=== PATIENT | female | born 1970 | race Caucasian/White ===

== ENCOUNTER 2020-07-08 12:58 | Emergency (ER) | payer SELFPAY ==
[2020-07-08 13:05] VITALS: BP 108/74; PULSE 78; RESP 16; TEMP 36.6; O2SAT 100; BMI 23.6
[2020-07-08 14:11] VITALS: RESP 15
--- NOTE | 2020-07-08 14:19 | ED_ITS ---
HPI - General Adult General: Chief complaint: General Medical Stated complaint: PAIN WITH SHINGLES History of Present Illness: HPI narrative: Patient is a 50-year-old female comes to the ED with pain on skin of back. Patient says for the past couple weeks now she is having patches of burning pain on the skin on right side of torso. Patient has been to the doctor's office twice and they have put her on amitriptyline and says that has not helped. Patient has a painful spot that goes from the lateral edge of her right breast all the way around to her back. She also reports a patch of pain on the right side of cervical spine just below her right trapezius muscle. She does not see any visible rash. Associated symptoms: Reports rash; Deny chest pain, dyspnea, headache(s), nausea, palpitations or vomiting Review of Systems Const: Denies: fever(s), chills or fatigue Eyes: Denies: change in vision or eye discomfort ENMT: Denies: throat pain, odynophagia, nasal discharge or nasal congestion Card: Denies: chest pain, palpitations, edema, swelling of feet/ankles, dyspnea on exertion or orthopnea Resp: Denies: dyspnea, productive cough or non-productive cough GI: Denies: abdominal pain, nausea, vomiting, diarrhea, constipation or hematochezia : Denies: flank pain, dysuria or hematuria Musc: Denies: neck pain, back pain or extremity swelling Skin/Breast: Reports: rash; Denies: new lesions Neuro: Denies: headache(s), numbness in extremities or weakness in extremities PFS ED PFSH: Social History Smoking and tobacco status: current every day smoker cigarettes [ Other cigarette details: 0.5 pack @ 3 days ] and pipe Alcohol intake: never Physical Exam Const: COMMON NORMALS: no acute distress, patient oriented x3 and alert GENERAL APPEARANCE: cooperative and comfortable HENMT: COMMON NORMALS: normocephalic HEAD & SCALP: normocephalic MOUTH: Normal oral and palatal mucosa present THROAT: posterior oropharynx normal and uvula midline Neck/C-Spine: COMMON NORMALS: supple GENERAL: Yes normal visual inspection Resp: COMMON NORMALS: normal respiratory effort, No retractions, No use of accessory muscles and clear to auscultation bilaterally AUSCULTATION: clear to auscultation bilaterally Cardio: COMMON NORMALS: regular rate, regular rhythm, S1 normal heart sound present, S2 normal heart sound present, No gallops present (Cardio), No clicks present (Cardio), No murmurs present (Cardio) and Peripheral pulses 2+ throughout RATE: regular rate RHYTHM: regular rhythm HEART SOUNDS: S1 normal heart sound present and S2 normal heart sound present PERIPHERAL PULSES: Peripheral pulses 2+ throughout GI: COMMON NORMALS: Normal to inspection, nondistended, normoactive bowel sounds present, Soft to palpation, non-tender and no masses PALPATION: Yes Soft to palpation : COMMON NORMALS: Yes no CVA tenderness BLADDER/KIDNEY EXAM: Yes no CVA tenderness Back/Pelvis: COMMON NORMALS: no CVA tenderness Extremity: COMMON NORMALS: normal to inspection Neuro: COMMON NORMALS: patient oriented x3 and moves all extremities SENSORIUM/ORIENTATION: Yes alert Skin: NARRATIVE SKIN EXAM: Patient appears to have slight erythemic patch-like rash on right flank and right side upper back. Rash is not raised and is not vesicular.. Rash is tender to palpation. Course Vital Signs: Vital signs: Vital Signs Temperature 97.8 F 07/08/20 13:05 Pulse Rate 78 07/08/20 13:05 Respiratory Rate 15 07/08/20 14:54 Blood Pressure 108/74 07/08/20 13:05 Pulse Oximetry 100 07/08/20 13:05 MDM - General Adult MDM Narrative: Medical decision making narrative: Patient is a 50-year-old female appears to be having shingles-like symptoms. She has an erythemic rash on right flank and right upper back that is painful to the touch. Findings suggestive of shingles. She was discharged home with a prescription for valacyclovir. She is told to follow-up with her PCP in 7 to 10 days. Return ED precautions given. Patient understood agree with plan. Discharge Plan Discharge Patient Disposition: Home Clinical Impression: Shingles rash Qualifiers: Herpes zoster complications: without complications Qualified Code(s): B02.9 - Zoster without complications Condition: Stable Prescriptions: New valacyclovir 1 gram tablet 1,000 mg PO Q8H 7 Days Qty: 21 RF: 0 Discharge Orders: Discharge ED (Routine); Ordered 07/08/20 Ordered By: Nicolas Stone Referrals: Perez,Rome K, HEAT TREATER HELPER [Primary Care Provider] - Discharge Diet: Regular Discharge Activity: Increase activity as tolerated Patient Instructions: Herpes Zoster (ED) Activity Restrictions/Additional Instructions: Follow-up with medical provider as directed. Take medications as prescribed. Return to the ER or your medical provider if condition worsens. Please read and understand discharge instructions. Thank you for choosing [facility] for your healthcare needs today. Please realize this is an emergency room and that we are providing you with a medical screening exam and this may not be complete and all inclusive of all the testing and or work up that you may need to determine your ailment or severity of your illness. It is very important that you follow up as instructed or that you return to the Emergency Department should you have concerns or if your condition changes or worsens in any way. Coding Level of Care Code ED Surgical Product Sales Consultant for Delmer Arceo Exam Comprehensive
[2020-07-08] MEDS: HYDROcodone-acetaminophen 7.5-325 mg Tablet 1 TAB PO (14:31)
[2020-07-08 14:54] VITALS: RESP 15
== END 2020-07-08 14:55 | disposition home or self-care (01) ==
PROVIDERS: Emergency Provider Physician Assistant; PCP Nurse Practitioner
DX: B02.9 Zoster without complications (principal); F17.210 Nicotine dependence, cigarettes, uncomplicated
CPT/HCPCS: 99282

== ENCOUNTER 2020-07-10 23:10 | Emergency (ER) | payer SELFPAY ==
[2020-07-10 23:18] VITALS: BP 119/67; PULSE 74; RESP 15; TEMP 36.9; O2SAT 100; BMI 23.6
--- NOTE | 2020-07-10 23:33 | ED_ITS ---
HPI - General Adult General: Chief complaint: General Medical Stated complaint: shingles Time Seen by Provider: 07/10/20 23:18 History of Present Illness: HPI narrative: Patient was diagnosed with a herpes zoster's neuropathy last week. Patient reports numbness in her right arm and mid back pain. Patient appears well. Patient appears in mild to moderate pain. Patient does have a history of neck pain, and restless legs. Patient denies any routine meds medication use. Review of Systems General: Reports: 10 or more systems reviewed and unremarkable except in HPI and below PFSH ED PFSH: Social History Smoking and tobacco status: current every day smoker cigarettes [ Other cigarette details: 0.5 pack @ 3 days ] and pipe Alcohol intake: never Physical Exam Const: COMMON NORMALS: no acute distress and patient oriented x3 GENERAL APPEARANCE: cooperative HENMT: COMMON NORMALS: normocephalic, TM's normal bilaterally and Normal external nose present HEAD & SCALP: normal to inspection and normocephalic NOSE: Normal external nose present TYMPANIC MEMBRANE: TM's normal bilaterally MOUTH: Normal oral and palatal mucosa present THROAT: posterior oropharynx normal Eye: GENERAL EYE: appearance normal, both eyes and all related structures Neck/C-Spine: COMMON NORMALS: full ROM CERVICAL SPINE: Yes Paracervical muscle tenderness Lymph: LYMPHATIC: no lymphadenopathy noted Chest: COMMONS NORMALS: normal inspection of the chest Resp: COMMON NORMALS: normal respiratory effort EFFORT & INSPECTION: Yes able to speak in complete sentences Cardio: COMMON NORMALS: regular rate and regular rhythm RATE: regular rate RHYTHM: regular rhythm GI: COMMON NORMALS: non-tender : COMMON NORMALS: Yes no CVA tenderness BLADDER/KIDNEY EXAM: Yes no CVA tenderness Back/Pelvis: COMMON NORMALS: no CVA tenderness and thoracic and lumbar spine normal to inspection Extremity: COMMON NORMALS: normal to inspection Neuro: COMMON NORMALS: patient oriented x3 and moves all extremities Psych: COMMON NORMALS: mental status grossly normal and cooperative Skin: COMMON NORMALS: no rashes or lesions noted GENERAL SKIN EXAM: no rashes or lesions noted Course Vital Signs: Vital signs: Vital Signs Temperature 98.4 F 07/10/20 23:18 Pulse Rate 73 07/11/20 01:16 Respiratory Rate 16 07/11/20 01:16 Blood Pressure 97/63 07/11/20 01:16 Pulse Oximetry 98 07/11/20 01:16 MDM - General Adult MDM Narrative: Medical decision making narrative: Patient comes in for concerns of herpes zoster, shingles, and continued pain and discomfort due to the shingles. Patient has been having some mid back pain and some numbness in her left arm. On exam we note no shingles rash. Respirations are even lungs are clear to auscultation. Abdomen soft nontender. Vital signs are normal. Differential diagnosis includes but not limited to postherpetic neuropathy, cervical radiculopathy, depression. CT scan of the cervical neck was performed and noted some degenerative abnormalities but no specific spinal stenosis or fractures. Laboratory values were normal without any signs of significant anemia or liver disease. CRP was negative. Believe patient probably has some cervical radiculopathy which is causing some numbness going down her right arm. I will start patient on some gabapentin and give her some tramadol for her complaints of pain. Patient was given 1 hydrocodone in the emergency room with good results for pain control. Patient reported understanding agreed to plan and need for follow-up for further evaluation of cervical radiculopathy. Lab Data: Labs: Lab Results 07/11/20 07/11/20 Range/Units 00:01 00:01 WBC 6.0 (4.0-10.0) 10^3/ uL RBC 3.80 L (4.1-5.3) 10^6/u L Hgb 12.3 (11.5-15.3) g/dL Hct 37.8 (37.0-47.0) % MCV 99.5 H (81-99) fL MCH 32.4 (28.0-34.0) pg MCHC 32.5 (30.0-36.0) g/dL RDW 12.7 (12.1-15.1) % Plt Count 239 (130-400) 10^3/c mm MPV 10.1 (7.4-10.4) fL Neut % (Auto) 45.7 % Lymph % (Auto) 44.2 % [place] % (Auto) 6.1 % Eos % (Auto) 2.9 % Baso % (Auto) 0.8 % Neut # (Auto) 2.72 (1.8-7.7) 10^3/u L Lymph # (Auto) 2.6 (0.8-4.8) 10^3/u L [place] # (Auto) 0.4 (0.2-0.9) 10^3/u L Eos # (Auto) 0.2 (0.0-0.8) 10^3/u L Baso # (Auto) 0.1 (0.0-0.1) 10^3/u L Nucleated RBC % (a uto) 0 % Nucleated RBCs # 0.0 /100WBC Sodium 141 (136-145) mmol/L Potassium 4.1 (3.5-5.1) mmol/L Chloride 105 (98-107) mmol/L Carbon Dioxide 30 H (22-29) mmol/L Anion Gap 10.1 (5-19) BUN 14 (6-20) mg/dL Creatinine 0.6 (0.5-0.9) mg/dL GFR Calculation 105.8 (90-130) mL/min Glucose 108 (65-115) mg/dL Calculated Osmolal ity 293 (285-295) mOsm/k g Calcium 8.6 (8.5-10.5) mg/dL Total Bilirubin 0.3 (0.15-1.2) mg/dL AST 14 (0-32) U/L ALT 17 (0-33) U/L Alkaline Phosphata se 112 H (35-105) IU/L C-Reactive Protein 0.9 (0.0-4.9) mg/L Total Protein 6.0 L (6.6-8.7) g/dL Albumin 3.7 (3.5-5.2) g/dL Globulin 2.3 (1.3-4.6) g/dL Discharge Plan Discharge Patient Disposition: Home Clinical Impression: Cervical radicular pain Condition: Stable Prescriptions: New gabapentin 100 mg capsule 100 mg PO TID Qty: 45 RF: 0 tramadol 50 mg tablet 50 mg PO TID PRN (Reason: pain (scale score 7-10)) Qty: 15 RF: 0 No Action valacyclovir 1 gram tablet 1,000 mg PO Q8H 7 Days Qty: 21 RF: 0 Discharge Orders: Discharge ED (Routine); Ordered 07/11/20 Ordered By: Donn Yeh Referrals: oRme Perez FNP [Primary Care Provider] - Discharge Diet: Usual diet Discharge Activity: Increase activity as tolerated Patient Instructions: Cervical Radiculopathy (ED), Opioid Safety Activity Restrictions/Additional Instructions: Activity as tolerated. Use medications as directed. Drink plenty of water with medication. Follow-up with primary care for further instructions. Return to the ER for new concerns. Coding Level of Care Code ED Data Modeling Architect for Delmer Arceo
--- NOTE | 2020-07-10 23:42 | CTR_ITS ---
PROCEDURE INFORMATION: Exam: CT Cervical Spine Without Contrast Exam date and time: 07/10/2020 11:43 PM Age: 50 years old Clinical indication: Patient HX: C/O neck pain and stiffness. Recently diagnosed with shingles. ; Additional info: Cervical radiculopathy TECHNIQUE: Imaging protocol: Computed tomography images of the cervical spine without contrast. Radiation optimization: All CT scans at this facility use at least one of these dose optimization techniques: automated exposure control; mA and/or kV adjustment per patient size (includes targeted exams where dose is matched to clinical indication); or iterative reconstruction. COMPARISON: No relevant prior studies available. RADIATION DOSE METRICS: Total DLP (mGy-cm): 365.47 FINDINGS: Bones/joints: There is mild broad-based upper cervical kyphosis. There is no spondylolisthesis. There is mild multilevel facet spondylosis. There is no acute fracture. Discs/Spinal canal/Neural foramina: There is moderate degenerative disc disease in the cervical spine. There is no spinal canal stenosis. Lungs: Lung apices are clear. Soft tissues: Soft tissues in the neck and thoracic inlet are unremarkable. Other findings: The visible portion of the brain is normal. CT/CT cervical spin wo con* [id number] IMPRESSION: No acute fracture. Radiation Dose CTDIVOL = (mGy): DLP = 365.47 (mGy-cm)
[2020-07-11 00:06] LABS: Basophils # 0.1 10^3/uL (0.0-0.1); Basophils % 0.8 %; Eosinophils # 0.2 10^3/uL (0.0-0.8); Eosinophils % 2.9 %; Hematocrit 37.8 % (37.0-47.0); Hemoglobin 12.3 g/dL (11.5-15.3); Lymphocytes # 2.6 10^3/uL (0.8-4.8); Lymphocytes % 44.2 %; Mean Corpuscular HGB Conc 32.5 g/dL (30.0-36.0); Mean Corpuscular Hemoglobin 32.4 pg (28.0-34.0); Mean Corpuscular Volume 99.5 fL (81-99); Mean Platelet Volume 10.1 fL (7.4-10.4); Monocytes # 0.4 10^3/uL (0.2-0.9); Monocytes % 6.1 %; Neutrophils # 2.72 10^3/uL (1.8-7.7); Neutrophils % 45.7 %; Nucleated Red Blood Cells % 0 %; Platelet Count 239 10^3/cmm (130-400); Red Cell Distribution Width 12.7 % (12.1-15.1)
[2020-07-11] MEDS: HYDROcodone-acetaminophen 7.5-325 mg Tablet 1 TAB PO (00:13)
[2020-07-11 00:25] LABS: Alanine Aminotransferase 17 U/L (0-33); Albumin Level 3.7 g/dL (3.5-5.2); Alkaline Phosphatase 112 IU/L (35-105); Anion Gap 10.1 (5-19); Aspartate Amino Transferase 14 U/L (0-32); Blood Urea Nitrogen 14 mg/dL (6-20); C Reactive Protein 0.9 mg/L (0.0-4.9); Calcium 8.6 mg/dL (8.5-10.5); Carbon Dioxide 30 mmol/L (22-29); Chloride 105 mmol/L (98-107); Globulin 2.3 g/dL (1.3-4.6); Glomerular Filtration Rate 105.8 mL/min (90-130); Glucose 108 mg/dL (65-115); Osmolality Calculated 293 mOsm/kg (285-295); Potassium 4.1 mmol/L (3.5-5.1); Sodium 141 mmol/L (136-145); Total Bilirubin 0.3 mg/dL (0.15-1.2)
[2020-07-11 01:16] VITALS: BP 97/63; PULSE 73; RESP 16; O2SAT 98
[2020-07-11 01:33] VITALS: BP 102/72; PULSE 67; RESP 16; TEMP 36.7; O2SAT 100
== END 2020-07-11 01:35 | disposition home or self-care (01) ==
PROVIDERS: Emergency Provider Nurse Practitioner Family; PCP Nurse Practitioner
DX: M54.12 Radiculopathy, cervical region (principal); F17.210 Nicotine dependence, cigarettes, uncomplicated
CPT/HCPCS: 72125; 80053; 80307; 85025; 86140; 99283

== ENCOUNTER → 2020-07-11 08:39 | Outpatient (BNVA) | payer SELFPAY | PROVIDERS: PCP Nurse Practitioner; Visit Provider Nurse Practitioner Family | DX: R20.8 Other disturbances of skin sensation (principal) | CPT/HCPCS: 86787 ==

== ENCOUNTER 2021-07-24 07:40 | Emergency (ER) | payer OTHER, SELFPAY ==
[2021-07-24 07:48] VITALS: BP 116/67; PULSE 61; RESP 18; O2SAT 97; BMI 22.8
--- NOTE | 2021-07-24 07:56 | W.ED.FALL ---
HPI - Fall General: Chief Complaint: Fall Stated Complaint: fell at [facility] entrance Time Seen by Provider: 07/24/21 07:44 History of Present Illness: Patient is a 51-year-old female comes to the ED after a fall. Fall occurred this morning at [facility] medical office building. Patient was going to sit down on bench and missed the bench. Her buttock and lower back hit the floor and patient describes hearing a crack when she hit the ground. She now has 10 out of 10 pain in her lower back. Denies any pain radiating into her legs. Any movement causes worsening pain. Denies any head trauma or loss of consciousness. Denies any numbness tingling to pelvic region, bladder or bowel incontinence or any weakness to lower extremities. Patient has MS and sees Dr. Pastor. She has currently been set up with getting outpatient steroid IV infusions for 5 straight days. Patient has had 2 infusions already and today she was back to get her third infusion but skipped appointment due to fall. Associated symptoms-after fall: Denies abdominal pain, chest pain, headache(s), hematuria or neck pain Review of Systems Const: Denies: fever(s), chills or fatigue Eyes: Denies: change in vision or eye discomfort ENMT: Denies: throat pain, odynophagia, nasal discharge or nasal congestion Card: Denies: chest pain, palpitations, edema, swelling of feet/ankles, dyspnea on exertion or orthopnea Resp: Denies: dyspnea, productive cough or non-productive cough GI: Denies: abdominal pain, nausea, vomiting, diarrhea, constipation or hematochezia : Denies: flank pain, dysuria or hematuria Musc: Reports: back pain (Lumbar back pain); Denies: neck pain or extremity swelling Skin/Breast: Denies: rash or new lesions Neuro: Denies: headache(s), numbness in extremities or weakness in extremities PFS ED PFSH: Medical History Anxiety Multiple sclerosis Surgical History History of History of tubal ligation No pertinent past surgical history Family History Other CAD (coronary artery disease) Social History Smoking and tobacco status: current every day smoker cigarettes [ Other cigarette details: 0.5 pack @ 3 days] and pipe Alcohol intake: never Physical Exam Const: COMMON NORMALS: patient oriented x3 and alert GENERAL APPEARANCE: cooperative HENMT: COMMON NORMALS: normocephalic HEAD & SCALP: normocephalic MOUTH: Normal oral and palatal mucosa present THROAT: posterior oropharynx normal and uvula midline Neck/C-Spine: COMMON NORMALS: supple GENERAL: Yes normal visual inspection Resp: COMMON NORMALS: normal respiratory effort, No retractions, No use of accessory muscles and clear to auscultation bilaterally AUSCULTATION: clear to auscultation bilaterally Cardio: COMMON NORMALS: regular rate, regular rhythm, S1 normal heart sound present, S2 normal heart sound present, No gallops present (Cardio), No clicks present (Cardio), No murmurs present (Cardio) and Peripheral pulses 2+ throughout RATE: regular rate RHYTHM: regular rhythm HEART SOUNDS: S1 normal heart sound present and S2 normal heart sound present PERIPHERAL PULSES: Peripheral pulses 2+ throughout GI: COMMON NORMALS: Normal to inspection, nondistended, normoactive bowel sounds present, Soft to palpation, non-tender and no masses PALPATION: Yes Soft to palpation : COMMON NORMALS: Yes no CVA tenderness BLADDER/KIDNEY EXAM: Yes no CVA tenderness Back/Pelvis: COMMON NORMALS: no CVA tenderness LUMBAR SPINE/LOWER BACK: Yes pain with ROM, Yes lumbar spinal tenderness Lumbar spinal tenderness location: L3, L4 and L5 and Yes paraspinal muscle tenderness Lumbar paraspinal muscle tenderness: bilateral Bilateral lumbar paraspinal muscle tenderness: L3, L4 and L5 Extremity: COMMON NORMALS: normal to inspection and no pedal edema Neuro: COMMON NORMALS: patient oriented x3 and moves all extremities SENSORIUM/ORIENTATION: Yes alert Skin: GENERAL SKIN EXAM: dry skin Course ED course: Patient was here at the medical office building to get her third IV steroid infusion for MS. She was set up by Dr. Pastor to get outpatient daily IV steroid infusions for the next 5 days. After her fall she came straight over here to the ED to be evaluated and did not make it to her appointment for the IV steroid infusion. I had the community support specialist here at the ED contact outpatient area to discuss if patient can still get IV steroid infusion once discharged here from the ED. Outpatient area agreed and stated for us to send patient directly over to outpatient to get her third IV steroid infusion after discharge from ED. Reevaluation(s): Reevaluation #1: I contacted the orthospine surgeon Dr. Andrews and told him about patient case, her history of MS and CT findings of lumbar compression fracture. He reviewed CT findings as well and recommended patient is clear for discharge home and he will see patient in clinic next week. He recommended putting patient in TLSO brace. Time: 09:10 Vital Signs: Vital signs: Vital Signs Pulse Rate 61 07/24/21 07:48 Respiratory Rate 16 07/24/21 09:42 Blood Pressure 116/67 07/24/21 07:48 Pulse Oximetry 98 07/24/21 09:42 MDM - Fall Medical Decision Making Patient is a 51-year-old female comes to the ED after a fall. Fall occurred this morning at [facility] medical office building. Patient was going to sit down on bench and missed the bench. Her buttock and lower back hit the floor and patient describes hearing a crack when she hit the ground. She now has 10 out of 10 pain in her lower back. Denies any pain radiating into her legs. Any movement causes worsening pain. Denies any head trauma or loss of consciousness. Denies any numbness tingling to pelvic region, bladder or bowel incontinence or any weakness to lower extremities. Patient has MS and sees Dr. Pastor. She has currently been set up with getting outpatient steroid IV infusions for 5 straight days. Patient has had 2 infusions already and today she was back to get her third infusion. I had the community support specialist here at the ED contact outpatient area to discuss if patient can still get IV steroid infusion once discharged here from the ED. Outpatient area agreed and stated for us to send patient directly over to outpatient to get her third IV steroid infusion after discharge from ED so she wouldn't miss MS treatment. --CT lumbar spine showed acute mildly complex fracture of the superior endplate of L2 with no retropulsion. 40% compression fracture of L3 with 5 mm retropulsion of the posterior superior endplate. I contacted the orthospine surgeon Dr. Andrews and told him about patient case, her history of MS and CT findings of lumbar compression fracture. He reviewed CT findings as well and recommended patient is clear for discharge home and he will see patient in clinic next week. He recommended putting patient in TLSO brace. Patient's pain was treated here in the ED with some morphine and hydrocodone. She was put in a TLSO brace and I placed order with case management for patient to be referred to Dr. Andrews's office for follow-up. She was then discharged with a prescription for [place] and muscle relaxer. Patient was then discharged from ED and sent over to outpatient to complete her IV steroid infusion treatment for MS. Patient understood and agreed with plan. Lab Data Radiology Impressions Lumbar Spine CT 07/24/21 08:04 IMPRESSION: 1. Acute mildly complex fracture superior endplate of L2 with no retropulsion. Mild anterior compression. 2. 40% compression fracture of L3 with 5 mm retropulsion of posterior superior endplate age indeterminate. Probably acute. 3. Mild central and bilateral subarticular recess stenosis at L2-3. Stenosis due to the retropulsion of the L3 vertebral body, more significant encroachment into the subarticular recesses. 4. Small RIGHT foraminal disc protrusion at L3-4 with contact on the RIGHT L4 nerve root. 5. Small LEFT foraminal disc protrusion at L4-5. Mild subarticular recess encroachment. Discharge Plan Discharge Patient Disposition: Home Clinical Impression: Compression of lumbar vertebra Qualifiers: Encounter type: initial encounter Lumbar vertebra fracture level: L2 Qualified Code(s): S32.020A - Wedge compression fracture of second lumbar vertebra, initial encounter for closed fracture Condition: Stable Prescriptions: New methocarbamol 750 mg tablet 750 mg PO Q8H PRN (Reason: muscle spasms and pain) Qty: 30 0RF No Action alprazolam 1 mg tablet 0.5 mg PO BID 0RF Tylenol-Codeine #3 300-30 mg Tablet 1 tab PO BID PRN (Reason: Pain) 0RF Discharge Orders: Discharge ED (Routine); Ordered 07/24/21 Ordered By: Nicolas Stone Referrals: CASSIE DON MD [Primary Care Provider] - Discharge Diet: Regular Discharge Activity: Limit activity as instructed Activity Restrictions/Additional Instructions: Follow-up with medical provider as directed. Case management should be contacted in the next several days set up an appointment with Dr. Andrews for follow-up on lumbar compression fracture. Wear TLSO brace. Take medications as prescribed. Return to the ER or your medical provider if condition worsens. Please read and understand discharge instructions. Thank you for choosing [facility] for your healthcare needs today. Please realize this is an emergency room and that we are providing you with a medical screening exam and this may not be complete and all inclusive of all the testing and or work up that you may need to determine your ailment or severity of your illness. It is very important that you follow up as instructed or that you return to the Emergency Department should you have concerns or if your condition changes or worsens in any way. Coding Level of Care Code ED Concrete Engineer for Delmer Fwd Exam Comprehensive
--- NOTE | 2021-07-24 08:04 | CT_ITS ---
WS: [id number] CT LUMBAR SPINE, noncontrast. HISTORY: fall injury occurred at hospital with low back pain TECHNIQUE: Contiguous 2.5 mm axial imaging are performed. Sagittal and coronal reformats are submitte d and reviewed. All CT scans at [facility] use at least one of these dose optimization techni ques: automated exposure control; mA and/or kV adjustment per patient size (includes targeted exams w here dose is matched to clinical indication); or iterative reconstruction. IV contrast: None DLP: 1359.12 mGy.cm COMPARISON: None available. L2 acute appearing compression fracture involving the superior vertebral body. Mild compression of th e superior endplate with no retropulsion. No fracture identified into the posterior elements. L3 acute compression fracture by 40%. Retropulsion of the posterior superior endplate by 5 mm. This f racture is age indeterminate. Acute fracture lines not identified but with recent trauma this could b e acute. L1-2: Mild disc bulging with a very small LEFT foraminal disc protrusion. No stenosis. L2-3: Mild annular disc bulging. L3 retropulsion encroaches upon the ventral thecal sac and deforms t he thecal sac and narrows the subarticular recesses. Mild central and bilateral subarticular recess s tenosis. Mild encroachment upon the traversing L3 nerve roots. L3-4: Diffuse asymmetric disc bulging to the RIGHT. Mild encroachment upon the ventral thecal sac wit h a RIGHT foraminal disc protrusion contacting the exiting RIGHT L3 nerve root. Mild contact on the L 4 nerve roots in the subarticular recesses. L4-5: Mild asymmetric disc bulging, greatest to the LEFT. Small LEFT foraminal disc protrusion. Very mild encroachment upon the subarticular recesses. L5-S1: Mild disc bulging. Mild RIGHT foraminal stenosis. Moderate facet joint arthritis at L4-5 and L5-S1. Very mild atherosclerosis aorta. Nonobstructing calcifications LEFT kidney. CT/CT lumbar spine wo con* [id number] IMPRESSION: 1. Acute mildly complex fracture superior endplate of L2 with no retropulsion. Mild anterior compression. 2. 40% compression fracture of L3 with 5 mm retropulsion of posterior superior endplate age indeterminate. Probably acute. 3. Mild central and bilateral subarticular recess stenosis at L2-3. Stenosis d ue to the retropulsion of the L3 vertebral body, more significant encroachment into the subarticular recesses. 4. Small RIGHT foraminal disc protrusion at L3-4 with contact on the RIGHT L4 nerve root. 5. Small LEFT foraminal disc protrusion at L4-5. Mild subarticular recess encr oachment.
[2021-07-24] MEDS: HYDROcodone-acetaminophen 7.5-325 mg Tablet 1 TAB PO (08:08)
[2021-07-24 09:42] VITALS: RESP 16; O2SAT 98
[2021-07-24] MEDS: morphine 4 mg/mL SDV 1 mL IVP (09:42)
[2021-07-24] MEDS: orphenadrine 30 mg/mL Inj 2 mL 60 MG IVP (09:47)
--- NOTE | 2021-07-24 10:05 | DCPLANNER ---
Addendum entered by Irina Marcos 09/30/21 11:58: Patient had a follow up appointment scheduled with ortho - patient did attend appointment. Original Note: configuration release manager had message to schedule a follow up appointment for patient with ortho. configuration release manager sent patients information to the front office of ortho. Patients information will be printed and reviewed. Clinic will call patient with appointment information.
--- NOTE | 2021-07-24 10:11 | PC.NURSE ---
0915: PT here for TLSO brace placement. Meds given. Patient feeling better. 1005 Infusion here to accompany patient for scheduled infusion.
== END 2021-07-24 10:10 | disposition home or self-care (01) ==
PROVIDERS: Emergency Provider Physician Assistant; PCP Family Medicine
DX: S32.020A Wedge compression fracture of second lumbar vertebra, initial encounter for closed fracture (principal); W08.XXXA Fall from other furniture, initial encounter; G35 Multiple sclerosis
CPT/HCPCS: 72131; 96374; 96375; 97760; 99284; J2270; J2360; L0456

== ENCOUNTER 2021-07-24 08:00 | Outpatient (RCR) | payer OTHER, SELFPAY ==
[2021-07-22 17:01] VITALS: BP 132/89; PULSE 77; RESP 18; TEMP 37.2; O2SAT 100; BMI 22.8
[2021-07-23 12:04] VITALS: BP 133/85; PULSE 75; RESP 18; TEMP 37.1; O2SAT 99
[2021-07-24 10:53] VITALS: BP 103/68; PULSE 63; RESP 18; TEMP 36.8; O2SAT 99
--- NOTE | 2021-07-24 10:56 | PC.NURSE ---
Pt to GI lab from ER for Solumedrol 1 gm IV infusion. Pt suffered a fall earlier this morning and was evaluated in the ER prior to infusion. Dr. Pastor notified.
--- NOTE | 2021-07-24 12:00 | PC.NURSE ---
Pt to be admitted to floor as direct admit to 251-2. Dr. Hicks receiving. Gave report to both Dr. Hicks and Angi, nurse, on med-surg. Pt to floor via wheelchair with friend at side.
== END 2021-08-07 23:59 | disposition home or self-care (01) ==
LOC: GILAB 08:00
PROVIDERS: PCP Nurse Practitioner; Visit Provider Specialist
DX: G35 Multiple sclerosis (principal)
CPT/HCPCS: 96365; J2930; J7050

== ENCOUNTER 2021-07-24 12:50 | Observation (INO) | payer OTHER, SELFPAY ==
--- NOTE | 2021-07-24 13:11 | P.HP_ITS ---
Providers/Chief Complaint Admitting Physician: Olivia Pastor MD Primary Care Provider: CASSIE DON MD Chief Complaint: Intractable back pain; MS exacerbation History of Present Illness Ivelisse Velasco is a 51 year old female recently diagnosed with multiple sclerosis and initiated on high-dose Solu-Medrol for the last 3 days presented for her infusion of Solu-Medrol today and fell. She reports she was outside the office building, when she missed the seat on the bench. She denies any loss of consciousness. She reports she fell on her butt, and had immediate pain. She reports her pain is currently better but she did receive a muscle relaxant and some morphine in the emergency department. In the emergency department she was discharged home with a TLSO brace after being found to have compression fractures of L2 and L3. I was called by her neurologist for direct admission secondary to the concern of recent diagnosis of MS currently undergoing high- dose IV steroids in this patient with very limited ambulatory ability, now with compression fracture and intractable pain requiring IV pain medication. Patient reports no recent illness. No fever, cough. Review of Systems General: Reports: 10 or more systems reviewed and unremarkable except in HPI and below Const: Denies: fever(s) or chills Eyes: Denies: change in vision ENMT: Denies: throat pain Card: Denies: chest pain Resp: Denies: dyspnea GI: Denies: abdominal pain, hematochezia or melena : Denies: flank pain Musc: Reports: back pain and muscle weakness Skin/Breast: Denies: rash Neuro: Reports: numbness in extremities, weakness in extremities, sensory changes, lack of coordination and difficulty walking Psych: Denies: anxiety or depression Endo: Denies: polyuria Leonel/Lymph: Denies: easy bruising All/Imm: Denies: urticaria Medications/Allergies Home Medications Medication Instructions Recorded Confirmed Last Taken Type alprazolam 1 mg tablet 0.5 mg PO BID tab 07/22/21 07/22/21 Unknown History acetaminophen 300 mg-codeine 30 mg 1 tab PO BID PRN 07/23/21 07/23/21 Unknown History tablet methocarbamol 750 mg tablet 750 mg PO Q8H PRN #30 tab 07/24/21 Unknown Rx Allergies Allergy/AdvReac Type Severity Reaction Status Date / Time No Known Allergies Allergy Verified 07/22/21 14:23 PFSH Acute PFSH: Medical History Anxiety Multiple sclerosis Surgical History History of History of tubal ligation No pertinent past surgical history Family History Other CAD (coronary artery disease) Social History Smoking and tobacco status: current every day smoker cigarettes [ Other cigarette details: 0.5 pack @ 3 days] and pipe Alcohol intake: never Physical Exam Narrative: Vital signs are pending General exam is a white female, reporting pain 7/10 HEENT atraumatic and normocephalic. Pupils equally round. Oropharynx clear. Neck is supple no lymphadenopathy thyromegaly Cardiovascular regular in rhythm without murmur Lungs clear no wheezing or crackles Abdomen difficult to examine. Currently with TLSO brace on. exam is deferred Extremities no cyanosis clubbing or edema, cap refill brisk Skin no rash Neuro subjective weakness lower extremities. Gait is slow and measured. Subjective diminished sensation right lower extremity Data : 07/24/21 13:39 07/24/21 13:39 Other Labs: CBC, CMP has been ordered. Cervical spine CT has been done earlier in the day demonstrating no fracture. Lumbar spine CT demonstrated mildly complex fracture superior endplate of L2 with no retropulsion, mild anterior compression. 40% compression of L3 with 5 mm of retropulsion posterior superior endplate probably acute. Some other steno sis at L2/3, and disc protrusions L3/4 and L4/5. A&P Assessment and plan (1) Multiple sclerosis exacerbation: Patient requiring 2 more days of high-dose Solu-Medrol. Will provide 1 g IV tomorrow and 1 g IV Wednesday. PT/OT evaluations for fall prevention Status: Acute (2) Intractable back pain: Patient with significant back pain. Will provide oral medication, muscle relaxants, anti-inflammatories as needed. IV medication for breakthrough discomfort. Pain is secondary to acute compression fracture of lumbar vertebrae. Status: Acute (3) Compression of lumbar vertebra: Patient with fall today with acute lumbar compression fracture. Secondary to increased pain, in this patient already with MS exacerbation, she is hospitalized for her intractable pain and to make sure she is stable with therapy to eventually progress home in the next several days. Orthopedic spine surgery consultation will be obtained. Status: Acute Qualifiers: Encounter type: initial encounter Lumbar vertebra fracture level: L2 Qualified Code(s): S32.020A - Wedge compression fracture of second lumbar vertebra, initial encounter for closed fracture Plan Multiple other medical problems as outlined in past medical history Full code Lovenox for DVT prophylaxis Attestations Medical Necessity Statement*: Observation currently secondary to intractable pain. Coding Level of Care Code Acute Food And Beverage Attendant for [facility] Fwd Diagnoses Multiple sclerosis exacerbation G35 Intractable back pain M54.9 Compression of lumbar vertebra S32.020A Encounter type: initial encounter Lumbar vertebra fracture level: L2
[2021-07-24 13:16] VITALS: BP 108/63; PULSE 65; RESP 16; TEMP 37; O2SAT 94
[2021-07-24 13:59] LABS: Basophils % 0.1 %; Hematocrit 38.8 % (37.0-47.0); Hemoglobin 13.2 g/dL (11.5-15.3); Lymphocytes # 0.7 10^3/uL (0.8-4.8); Lymphocytes % 4.3 %; Mean Corpuscular Hemoglobin 32.8 pg (28.0-34.0); Mean Corpuscular Volume 96.5 fl (81-99); Mean Platelet Volume 10.5 fL (7.4-10.4); Monocytes # 0.2 10^3/uL (0.2-0.9); Monocytes % 1.6 %; Neutrophils # 14.43 10^3/uL (1.8-7.7); Neutrophils % 93.5 %; Nucleated Red Blood Cells % 0 %; Platelet Count 232 10^3/cmm (130-400); Red Blood Count 4.02 10^6/uL (4.1-5.3); Red Cell Distribution Width 12.6 % (12.1-15.1); White Blood Count 15.4 10^3/uL (4.0-10.0)
[2021-07-24 14:00] VITALS: RESP 18
[2021-07-24] MEDS: oxyCODONE 5 mg IR Tab/Cap PO ×2 (14:00→20:07)
[2021-07-24] MEDS: enoxaparin 30 mg/0.3 mL Syringe SUBCUT (14:01)
--- NOTE | 2021-07-24 14:02 | PM.CONSULT ---
Providers/Reason For Consult Consulting Physician/Specialty*: hospitalist Reason for Consult*: L2 and L3 traumatic wedge compression fracture Attending Physician: Alan Hicks MD Primary Care Provider: CASSIE DON MD History of Present Illness History of Present Illness Ivelisse Velasco is a 51 year old female ?she was outside the office building, when she missed the seat on the bench.? She denies any loss of consciousness.? She reports she fell on her butt, and had immediate pain.? She reports her pain is currently better but she did receive a muscle relaxant and some morphine in the emergency department.? In the emergency department she was discharged home with a TLSO brace after being found to have compression fractures of L2 and L3. No new neurologic symptoms Review of Systems General: Reports: 10 or more systems reviewed and unremarkable except in HPI and below Const: Denies: fever(s) or chills Eyes: Denies: change in vision ENMT: Denies: throat pain Card: Denies: chest pain Resp: Denies: dyspnea GI: Denies: abdominal pain, hematochezia or melena : Denies: flank pain Musc: Reports: back pain and muscle weakness Skin/Breast: Denies: rash Neuro: Reports: numbness in extremities, weakness in extremities, sensory changes, lack of coordination and difficulty walking Psych: Denies: anxiety or depression Endo: Denies: polyuria Leonel/Lymph: Denies: easy bruising All/Imm: Denies: urticaria Medications/Allergies Home Medications Medication Instructions Recorded Confirmed Last Taken Type alprazolam 1 mg tablet 0.5 mg PO BID tab 07/22/21 07/22/21 Unknown History acetaminophen 300 mg-codeine 30 mg 1 tab PO BID PRN 07/23/21 07/23/21 Unknown History tablet methocarbamol 750 mg tablet 750 mg PO Q8H PRN #30 tab 07/24/21 Unknown Rx Allergies Allergy/AdvReac Type Severity Reaction Status Date / Time No Known Allergies Allergy Verified 07/22/21 14:23 Current Medications Generic Name Dose Route Start Last Admin Trade Name Freq PRN Reason Stop Dose Admin Enoxaparin Sodium 30 mg 07/24/21 14:00 07/24/21 14:01 Enoxaparin 30 Mg/0.3 Ml Syringe SUBCUT 30 mg Q24H BANDAR Administration Oxycodone HCl 5 mg 07/24/21 13:15 07/24/21 14:00 Oxycodone 5 Mg Ir Tab/Cap PO 5 mg Q6H PRN Administration SEVERE PAIN PFSH Acute PFSH: Medical History (Updated 07/24/21 @ 13:25 by Alan Hicks MD) Anxiety Multiple sclerosis Surgical History (Updated 07/24/21 @ 13:25 by Alan Hicks MD) History of History of tubal ligation No pertinent past surgical history Family History (Updated 07/24/21 @ 13:15 by Alan Hicks MD) Other CAD (coronary artery disease) Social History Smoking and tobacco status: current every day smoker cigarettes [ Other cigarette details: 0.5 pack @ 3 days] and pipe Alcohol intake: never Vitals/I&O/Wt Last Vital Signs Resp 18 07/24/21 14:00 Physical Exam Narrative: GENERAL: Patient in no acute distress. CARDIAC: Regular rate and rhythm. CHEST: Normal inspiratory effort, normal respiratory rate. ABDOMEN: Soft and nontender. SKIN: Clear, warm and intact. NEURO?PSYCH: The patient is alert and oriented to person, place and time. weakness in extremities not new Data : 07/24/21 13:39 07/24/21 13:39 A&P Assessment and plan (1) Compression of lumbar vertebra: Has compression fractures of L2 and L3. At this point CT scans reviewed shows L2 I believe is acute fracture however L3 looks more chronic in nature. My plan is to obtain an MRI of her lumbar spine. To determine the acuity of the fractures. I did discuss with her options of treatment which include brace versus kyphoplasty at this point plan is to see how well she does through the weekend with pain control and getting up with physical therapy. Did discuss with her the risks of kyphoplasty. And the better option would be to be treated nonoperatively if we can help it. Status: Acute Qualifiers: Encounter type: initial encounter Lumbar vertebra fracture level: L2 Qualified Code(s): S32.020A - Wedge compression fracture of second lumbar vertebra, initial encounter for closed fracture Coding Level of Care Code Acute German Teacher for [facility] Fwd Diagnoses Compression of lumbar vertebra S32.020A Encounter type: initial encounter Lumbar vertebra fracture level: L2
--- NOTE | 2021-07-24 14:08 | MR_ITS ---
WS: [id number] MRI LUMBAR SPINE NONCONTRAST TECHNIQUE: Sagittal T1, T2 and STIR imaging. Axial T1 and T2 imaging. CLINICAL INFORMATION: compression fx L2 and L3 COMPARISON: CT July 24, 2021 FINDINGS: Mild lumbar curve. Compression fractures involving the super endplate L2 and L3 worse at L3 unchanged since the recent CT Retropulsion posterior superior cortex L3 with moderate central canal stenosis. Impingement subarticu lar recess bilaterally. Retropulsion measures approximately 5 mm unchanged. Minimal compression super ior endplate L2 with edema. No retropulsion. Pedicles appear intact at this level. L2 compression fracture has an acute appearance. Minimal edema in the L3 superior endplate. This has a more subacute to chronic appearance. Endplate Schmorl's node. L1-L2: Normal. L2-L3: Mild disc bulging in combination with retropulsion posterior superior endplate L3 results in m oderate central canal stenosis with impingement traversing L3 nerve roots bilaterally. Mild facet art hropathy. Mild bilateral foraminal narrowing. L3-L4: Mild disc bulging with mild central canal stenosis. Slight impingement traversing L4 nerve dominique ts bilaterally. Mild facet arthropathy. Small bilateral foraminal protrusions with mild RIGHT greater than LEFT foraminal narrowing. L4-L5: Mild annular bulging with mild central canal stenosis. Mild facet arthropathy. Mild LEFT great er than RIGHT foraminal narrowing with osteophytic ridging. L5-S1: Mild disc bulging with slight effacement of ventral thecal sac. Mild facet arthropathy. Spinal canal and foramen are patent. Expansile cervical cord lesion seen on the claims adjudicator imaging at the C4 level with additional partially vi sualized T2 hyperintense brainstem lesions compatible with history of MS. See recent outside MRI imag ing for further detail MR/MR lumbar spine wo con* [id number] IMPRESSION: 1. Mild acute compression superior endplate L2 with edema in the superior endp late. Pedicles appear intact. No retropulsion at the L2 level. Minimal loss kathy tebral body height. 2. Subacute to chronic appearing compression superior endplate L3 with endplat e Schmorl's node. Minimal edema at the L3 level. Mild retropulsion of the poste rior superior cortex with moderate central canal stenosis. Slight impingement t raversing L3 nerve roots bilaterally. 3. Mild central canal stenosis L3-L4 and L4-L5 due to mild disc bulging with f acet arthropathy and ligamentum flavum hypertrophy. 4. Mild to moderate RIGHT L3-L4 foraminal narrowing with a small RIGHT foramin al protrusion. This impinges the exiting RIGHT L3 nerve root. Recommend correla tion for L3 nerve root symptoms. 5. Mild LEFT L2-L3 foraminal narrowing. 6. T2 hyperintense lesions visualized in the cervical cord and brainstem presu mably due to patient's history of MS. Recommend correlation with recent outside MRI imaging.
[2021-07-24 14:22] LABS: Alanine Aminotransferase 19 U/L (0-33); Albumin Level 4.4 g/dL (3.5-5.2); Alkaline Phosphatase 126 IU/L (35-105); Aspartate Amino Transferase 17 U/L (0-32); Blood Urea Nitrogen 14 mg/dL (6-20); Calcium 9.1 mg/dL (8.5-10.5); Carbon Dioxide 24 mmol/L (22-29); Chloride 105 mmol/L (98-107); Globulin 2.3 g/dL (1.3-4.6); Glomerular Filtration Rate 88.2 mL/min (90-130); Glucose 142 mg/dL (65-115); Osmolality Calculated 297 mOsm/kg (285-295); Sodium 142 mmol/L (136-145); Total Bilirubin 0.9 mg/dL (0.15-1.2); Total Protein 6.7 g/dL (6.6-8.7)
[2021-07-24 15:44] VITALS: BP 100/62; PULSE 66; RESP 18; TEMP 37; O2SAT 94
[2021-07-24] MEDS: nicotine 14 mg Patch 1 PATCH TRANSDERMA (17:15)
[2021-07-24] MEDS: docusate sodium 100 mg Capsule PO (17:15)
[2021-07-24] MEDS: ALPRAZolam 0.5 mg Tablet 1 MG PO (18:50)
[2021-07-24 19:48] VITALS: BP 108/61; PULSE 75; RESP 16; TEMP 36.6; O2SAT 93
[2021-07-24 20:07] VITALS: RESP 14
[2021-07-24 23:53] VITALS: BP 105/62; PULSE 51; RESP 16; TEMP 36.8; O2SAT 96
[2021-07-25] VITALS (8 sets, daily range): BP systolic 103–116; BP diastolic 65–79; PULSE 44–76; RESP 11–17; TEMP 36.1–36.8; O2SAT 93–99
[2021-07-25] MEDS: oxyCODONE 5 mg IR Tab/Cap PO ×3 (06:25→23:11)
--- NOTE | 2021-07-25 07:13 | P.PN_ITS ---
Subjective Subjective: pt pain is the same this am Vitals/I&O/Wt Last Vital Signs Temp 97.8 F 07/25/21 03:51 Pulse 60 07/25/21 03:51 Resp 14 07/25/21 06:25 BP 113/72 07/25/21 03:51 Pulse Ox 94 07/25/21 03:51 07/24/21 07/25/21 07/25/21 22:59 06:59 14:59 Intake Total 480 / 480 480 / 960 Balance 480 / 480 480 / 960 Weight last 48 hrs Weight 137 lb 3 oz Physical Exam Narrative: resting in bed Data : 07/24/21 13:39 07/24/21 13:39 A&P Assessment and plan (1) Compression of lumbar vertebra: MRI reviewed with the patient. States she has an acute L2 compression fracture and likely old L3 compression fracture. At this point plan is to continue brace we can have her follow-up in the clinic next week. Status: Acute Qualifiers: Encounter type: initial encounter Lumbar vertebra fracture level: L2 Qualified Code(s): S32.020A - Wedge compression fracture of second lumbar vertebra, initial encounter for closed fracture Attestations Medical Necessity Statement*: defer to primary service Coding Level of Care Code Acute Manager Intermediate for [facility] Fwd Diagnoses Compression of lumbar vertebra S32.020A Encounter type: initial encounter Lumbar vertebra fracture level: L2
--- NOTE | 2021-07-25 08:05 | PC.PHAR ---
pt states she takes the medication entered-[facility] pharmacy doesnt open till 9am no way to verify-no meds pull up on ext med history
--- NOTE | 2021-07-25 08:19 | PM.PN ---
Subjective Subjective: Ivelisse reports her discomfort is a little better than yesterday. She has not worked with physical therapy yet. No change to the weakness in her lower extremities that is attributed to her MS. Orthopedic spine surgery has evaluated the patient, and conservative treatment is recommended at this time. Medications: Reviewed: Yes Vitals/I&O/Wt Last Vital Signs Temp 97.9 F 07/25/21 07:24 Pulse 44 L 07/25/21 07:24 Resp 11 L 07/25/21 07:24 BP 107/72 07/25/21 07:24 Pulse Ox 96 07/25/21 07:24 07/24/21 07/25/21 07/25/21 22:59 06:59 14:59 Intake Total 480 / 480 480 / 960 Balance 480 / 480 480 / 960 Weight last 48 hrs Weight 62.227 kg Physical Exam Narrative: General exam no distress Neck is supple no lymphadenopathy thyromegaly Cardiovascular regular in rhythm without murmur Lungs clear no wheezing or crackles Abdomen soft with positive bowel sounds Extremities no cyanosis clubbing or edema, cap refill brisk Skin no rash Neuro subjective weakness lower extremities. No foot drop Data : 07/24/21 13:39 07/24/21 13:39 A&P Assessment and plan (1) Multiple sclerosis exacerbation: Patient requiring 1 more days of high-dose Solu-Medrol. Will provide 1 g IV today and 1 g IV Wednesday. PT/OT evaluations for fall prevention Status: Acute (2) Intractable back pain: Patient with significant back pain. Will provide oral medication, muscle relaxants, anti-inflammatories as needed. IV medication for breakthrough discomfort. Pain is currently improving Pain is secondary to acute compression fracture of lumbar vertebrae. Appreciate orthopedic spine surgery consultation. Status: Acute (3) Compression of lumbar vertebra: Patient with fall 07/24 with acute lumbar compression fracture. Secondary to increased pain, in this patient already with MS exacerbation, she is hospitalized for her intractable pain and to make sure she is stable with therapy to eventually progress home in the next several days. Orthopedic spine surgery consultation appreciated. Status: Acute Qualifiers: Encounter type: initial encounter Lumbar vertebra fracture level: L2 Qualified Code(s): S32.020A - Wedge compression fracture of second lumbar vertebra, initial encounter for closed fracture Plan Multiple other medical problems as outlined in past medical history Full code Lovenox for DVT prophylaxis No need for laboratory tomorrow. Attestations Medical Necessity Statement*: Needs continued hospitalization for therapy evaluation, IV Solu-Medrol for MS exacerbation. Anticipate discharge tomorrow. Coding Level of Care Code Acute Anesthesia Associate for [facility] Fwd Diagnoses Multiple sclerosis exacerbation G35 Intractable back pain M54.9 Compression of lumbar vertebra S32.020A Encounter type: initial encounter Lumbar vertebra fracture level: L2
[2021-07-25] MEDS: nicotine 14 mg Patch 1 PATCH TRANSDERMA (08:31)
[2021-07-25] MEDS: docusate sodium 100 mg Capsule PO ×2 (08:31→17:30)
[2021-07-25] MEDS: methocarbamol 750 mg Tablet PO (09:27)
[2021-07-25] MEDS: ALPRAZolam 0.5 mg Tablet 1 MG PO ×2 (09:27→20:06)
[2021-07-25] MEDS: enoxaparin 30 mg/0.3 mL Syringe SUBCUT (14:12)
[2021-07-26 00:39] VITALS: BP 93/62; PULSE 52; RESP 12; TEMP 36.6; O2SAT 96
[2021-07-26 04:00] VITALS: BP 95/53; PULSE 48; RESP 16; TEMP 36.7; O2SAT 96
[2021-07-26 06:30] VITALS: RESP 16
[2021-07-26] MEDS: oxyCODONE 5 mg IR Tab/Cap PO ×2 (06:30→12:30)
[2021-07-26 07:56] VITALS: BP 125/63; PULSE 45; RESP 13; TEMP 36.6; O2SAT 99
[2021-07-26] MEDS: nicotine 14 mg Patch 1 PATCH TRANSDERMA (09:29)
[2021-07-26] MEDS: docusate sodium 100 mg Capsule PO (09:29)
--- NOTE | 2021-07-26 11:00 | ECG_ITS ---
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 Measurements Intervals [place] Rate: 49 P: 67 SD: 140 QRS: 35 QRSD: 104 T: 35 QT: 463 QTc: 422 Interpretive Statements SINUS BRADYCARDIA No previous ECG available for comparison Electronically Signed On 07-27-2021 13:03:50 CDT by Asuncion Ferris M.D. [id number]
--- NOTE | 2021-07-26 12:21 | P.DS_ITS ---
Discharge Providers Date of Admission: 07/24/21 12:50 Date of Discharge: July 26, 2021 Attending Provider at Admission: Olivia Pastor MD Attending Provider at Discharge: Douglas Stockton MD Primary Care Provider: CASSIE DON MD Diagnoses at Discharge Discharge Diagnosis (1) Multiple sclerosis exacerbation: Status: Acute (2) Intractable back pain: Status: Acute (3) Compression of lumbar vertebra: Status: Acute Qualifiers: Encounter type: initial encounter Lumbar vertebra fracture level: L2 Qualified Code(s): S32.020A - Wedge compression fracture of second lumbar vertebra, initial encounter for closed fracture Reason for Visit Reason for Visit: Intractable back pain; MS exacerbation Brief History: History as per HPI: Ivelisse Velasco is a 51 year old female recently diagnosed with multiple sclerosis and initiated on high-dose Solu-Medrol for the last 3 days presented for her infusion of Solu-Medrol today and fell.? She reports she was outside the office building, when she missed the seat on the bench.? She denies any loss of consciousness.? She reports she fell on her butt, and had immediate pain.? She reports her pain is currently better but she did receive a muscle relaxant and some morphine in the emergency department.? In the emergency department she was discharged home with a TLSO brace after being found to have compression fractures of L2 and L3.? I was called by her neurologist for direct admission secondary to the concern of recent diagnosis of MS currently undergoing high- dose IV steroids in this patient with very limited ambulatory ability, now with compression fracture and intractable pain requiring IV pain medication. Hospital Course Hospital Course Patient admitted to hospital further evaluation and management. She started on stress dose steroids. Orthopedics was consulted and she was started on pain management. He has been advised to follow-up with orthopedics as an outpatient within next 2 weeks. Patient was discharged in hemodynamically stable condition after finishing 3day course of high-dose steroids on slow taper as an outpatient. She is to follow-up with neurology within next 7 to 10 days. Patient was found to have bradycardia during hospitalization for which EKG was not consistent with sinus bradycardia. She is also been discharged on Bactrim DS 2 mg to be taken on Wednesday, Wednesday, Wednesday as prophylaxis given she will be on high-dose steroids. Physical Exam Narrative: General exam no distress Neck is supple no lymphadenopathy thyromegaly Cardiovascular regular in rhythm without murmur Lungs clear no wheezing or crackles Abdomen soft with positive bowel sounds Extremities no cyanosis clubbing or edema, cap refill brisk Skin no rash Neuro subjective weakness lower extremities. No foot drop Discharge Data Studies Completed and Pending Completed Studies During Hospitalization Category Date Time Status MR lumbar spine wo con* [id number] Routine MRI 07/24/21 14:08 Completed Radiology Impressions Lumbar Spine MRI 07/24/21 14:08 IMPRESSION: 1. Mild acute compression superior endplate L2 with edema in the superior endplate. Pedicles appear intact. No retropulsion at the L2 level. Minimal loss vertebral body height. 2. Subacute to chronic appearing compression superior endplate L3 with endplate Schmorl's node. Minimal edema at the L3 level. Mild retropulsion of the posterior superior cortex with moderate central canal stenosis. Slight impingement traversing L3 nerve roots bilaterally. 3. Mild central canal stenosis L3-L4 and L4-L5 due to mild disc bulging with facet arthropathy and ligamentum flavum hypertrophy. 4. Mild to moderate RIGHT L3-L4 foraminal narrowing with a small RIGHT f oraminal protrusion. This impinges the exiting RIGHT L3 nerve root. Recommend correlation for L3 nerve root symptoms. 5. Mild LEFT L2-L3 foraminal narrowing. 6. T2 hyperintense lesions visualized in the cervical cord and brainstem presumably due to patient's history of MS. Recommend correlation with recent outside MRI imaging. Laboratory Results WBC 15.4 10^3/uL (4.0-10.0) H 07/24/21 13:39 RBC 4.02 10^6/uL (4.1-5.3) L 07/24/21 13:39 Hgb 13.2 g/dL (11.5-15.3) 07/24/21 13:39 Hct 38.8 % (37.0-47.0) 07/24/21 13:39 MCV 96.5 fl (81-99) 07/24/21 13:39 MCH 32.8 pg (28.0-34.0) 07/24/21 13:39 MCHC 34.0 g/dL (30.0-36.0) 07/24/21 13:39 RDW 12.6 % (12.1-15.1) 07/24/21 13:39 Plt Count 232 10^3/cmm (130-400) 07/24/21 13:39 MPV 10.5 fL (7.4-10.4) H 07/24/21 13:39 Neut % (Auto) 93.5 % 07/24/21 13:39 Lymph % (Auto) 4.3 % 07/24/21 13:39 [place] % (Auto) 1.6 % 07/24/21 13:39 Eos % (Auto) 0.0 % 07/24/21 13:39 Baso % (Auto) 0.1 % 07/24/21 13:39 Neut # (Auto) 14.43 10^3/uL (1.8-7.7) H 07/24/21 13:39 Lymph # (Auto) 0.7 10^3/uL (0.8-4.8) L 07/24/21 13:39 [place] # (Auto) 0.2 10^3/uL (0.2-0.9) 07/24/21 13:39 Eos # (Auto) 0.0 10^3/uL (0.0-0.8) 07/24/21 13:39 Baso # (Auto) 0.0 10^3/uL (0.0-0.1) 07/24/21 13:39 Nucleated RBC % (auto) 0 % 07/24/21 13:39 Nucleated RBCs # 0.0 /100WBC 07/24/21 13:39 Sodium 142 mmol/L (136-145) 07/24/21 13:39 Potassium 4.0 mmol/L (3.5-5.1) 07/24/21 13:39 Chloride 105 mmol/L (98-107) 07/24/21 13:39 Carbon Dioxide 24 mmol/L (22-29) 07/24/21 13:39 Anion Gap 17.0 (5-19) 07/24/21 13:39 BUN 14 mg/dL (6-20) 07/24/21 13:39 Creatinine 0.7 mg/dL (0.5-0.9) 07/24/21 13:39 GFR Calculation 88.2 mL/min (90-130) L 07/24/21 13:39 Glucose 142 mg/dL (65-115) H 07/24/21 13:39 Calculated Osmolality 297 mOsm/kg (285-295) H 07/24/21 13:39 Calcium 9.1 mg/dL (8.5-10.5) 07/24/21 13:39 Magnesium 2.0 mg/dL (1.7-2.3) 07/24/21 13:39 Total Bilirubin 0.9 mg/dL (0.15-1.2) 07/24/21 13:39 AST 17 U/L (0-32) 07/24/21 13:39 ALT 19 U/L (0-33) 07/24/21 13:39 Alkaline Phosphatase 126 IU/L (35-105) H 07/24/21 13:39 Total Protein 6.7 g/dL (6.6-8.7) 07/24/21 13:39 Albumin 4.4 g/dL (3.5-5.2) 07/24/21 13:39 Globulin 2.3 g/dL (1.3-4.6) 07/24/21 13:39 Vitals Last Vital Signs Temp 98 F 07/26/21 07:56 Pulse 45 L 07/26/21 07:56 Resp 13 07/26/21 07:56 BP 125/63 07/26/21 07:56 Pulse Ox 99 07/26/21 07:56 Discharge Plan Discharge Patient Disposition: Home Condition: Stable Prescriptions: New docusate sodium 100 mg Capsule 100 mg PO BID Qty: 14 0RF oxycodone 5 mg Tablet 5 mg PO Q6H PRN (Reason: Severe Pain) Qty: 10 0RF prednisone 10 mg tablet See Taper mg PO DAILY Qty: 250 0RF Taper: predniSONE 60-10 60 mg Daily for 14 Days and 0 Hour 50 mg Daily for 14 Days and 0 Hour 40 mg Daily for 14 Days and 0 Hour 30 mg Daily for 7 Days and 0 Hour 20 mg Daily for 7 Days and 0 Hour 10 mg Daily for 30 Days and 0 Hour Bactrim DS 800-160 mg tablet 1 tab PO MOWEFR Qty: 30 0RF Protonix 40 mg tablet,delayed release (DR/EC) 40 mg PO QAM 28 Days Qty: 28 0RF Continued alprazolam 1 mg tablet 0.5 mg PO BEDTIME 0RF acetaminophen-codeine 300-30 mg Tablet 1 tab PO BID PRN (Reason: Pain) 0RF methocarbamol 750 mg tablet 750 mg PO Q8H PRN (Reason: muscle spasms and pain) Qty: 30 0RF Discharge Orders: Discharge Order (Routine); Ordered 07/26/21 Ordered By: Douglas Stockton Referrals: Olivia Pastor MD [Physician] - 4-7 days (Please call Wednesday to schedule a follow up appointment with Dr. Pastor.) Sudhir Andrews DO [Physician] - 2 weeks (Please call Wednesday to schedule a follow up appointment witih Dr. Andrews.) CASSIE DON MD [Primary Care Provider] - 7-10 days (Please call Wednesday to schedule a follow up appointment.) Discharge Diet: Cardiac Discharge Activity: Resume usual activity and Increase activity as tolerated Patient Instructions: Sulfamethoxazole/Trimethoprim (By mouth), Prednisone (By mouth), Laxative, Stool Softeners (By mouth), Oxycodone, Rapid Release (By mouth), Pantoprazole (By mouth), Multiple Sclerosis (GEN), Vertebral Compression Fracture (IP), Thoracolumbosacral Orthosis (GEN), Opioid Safety Activity Restrictions/Additional Instructions: Follow-up with your primary care provider within next 1 week, Neurology within next 1 week, Dr. Andrews from orthopedics in 2 weeks. Take steroids as described in paper. Take 60 mg for next 2 weeks, followed by 50 mg for next 2 weeks and report back to 40 mg for next 2 weeks then taper 10 mg on a weekly basis and then take 10 mg daily. While you are on steroids for m ore than 10 mg daily please take Bactrim DS Wednesday, , Wednesday which is 3 days of the week. Discharge Attestations Time Spent in Discharge Care*: greater than 30 min Specific Discharge Activities: educating patient, discussing with pcp/other providers, discussing with complex case manager/social workers/dc planners, documenting/other paperwork and evaluating patient/reviewing data Status at Discharge: Cognitive status at discharge: cognitively intact , Behavioral status at discharge: cooperative , Functional status at discharge: uses cane/walker , Overall status at discharge: patient is back to baseline Quality Metrics Clinical Quality Measures [ No reported AMI, CVA or VTE this stay] Coding Level of Care Code Acute Chg FW DC note Diagnoses Multiple sclerosis exacerbation G35 Intractable back pain M54.9 Compression of lumbar vertebra S32.020A Encounter type: initial encounter Lumbar vertebra fracture level: L2
[2021-07-26 12:30] VITALS: RESP 16
== END 2021-07-26 14:12 | disposition home or self-care (01) ==
PROVIDERS: Internal Medicine; Admitting Provider Specialist; PCP Family Medicine; Visit Provider Student in an Organized Health Care Education/Training Program
DX: G35 Multiple sclerosis (principal); M54.9 Dorsalgia, unspecified; S32.020A Wedge compression fracture of second lumbar vertebra, initial encounter for closed fracture; X58.XXXA Exposure to other specified factors, initial encounter; F17.210 Nicotine dependence, cigarettes, uncomplicated
CPT/HCPCS: 72148; 80053; 83735; 85025; 93005; 96372; 97161; 97165; 97530; G0378; G0379; J1650; J2930; J7050

== ENCOUNTER → 2021-07-31 15:01 | Outpatient (BNVA) | payer OTHER, SELFPAY | PROVIDERS: PCP Family Medicine; Referring Provider Physician Assistant; Visit Provider Orthopaedic Surgery | DX: M48.56XA Collapsed vertebra, not elsewhere classified, lumbar region, initial encounter for fracture (principal); M54.50 Low back pain, unspecified | CPT/HCPCS: 72100 ==

== ENCOUNTER → 2021-08-15 09:08 | Outpatient (BNVA) | payer OTHER, SELFPAY | PROVIDERS: PCP Family Medicine; Visit Provider Nurse Practitioner Family | DX: N31.9 Neuromuscular dysfunction of bladder, unspecified (principal); R39.11 Hesitancy of micturition; N20.0 Calculus of kidney | CPT/HCPCS: 74018; 81003 ==

== ENCOUNTER 2021-09-16 12:25 | Outpatient (RCR) | payer OTHER, BC, MEDICAID, SELFPAY ==
[2021-09-12 08:23] VITALS: BP 109/67; PULSE 66; RESP 18; TEMP 36.2; O2SAT 100
[2021-09-13 10:46] VITALS: BP 109/64; PULSE 74; RESP 18; TEMP 37.1; O2SAT 99
--- NOTE | 2021-09-13 10:47 | PC.NURSE ---
PATIENT ARRIVED TO OPS FOR INFUSION. WHEN CHECKING IV SITE IT WAS FOUND PULLED OUT UNDER THE DRESSING. ATTEMPTED IV TO LEFT WRIST WITH 22G WHICH DID NOT TAKE. DR WALTER ATTEMPTED LEFT FOREARM 20G IV WITH ULTRASOUND WITH SUCCESS ON SECOND STICK. DR. WALTER CLEANED SITE PRIOR TO IV INSERTION. ONCE IV IN HE CLEANED AREA AND PLACED TRANSPARENT DRESSING TO SITE. PATIENT TOLERATED WELL.
[2021-09-14 10:47] VITALS: BP 110/61; PULSE 51; RESP 18; TEMP 36.9; O2SAT 100
[2021-09-15 11:53] VITALS: BP 115/54; PULSE 50; RESP 18; TEMP 36.9; O2SAT 100
[2021-09-16 14:00] VITALS: BP 104/59; PULSE 51; RESP 18; TEMP 36.7; O2SAT 99
== END 2021-10-08 23:59 | disposition home or self-care (01) ==
LOC: GILAB 12:25
PROVIDERS: PCP Family Medicine; Visit Provider Specialist
DX: G35 Multiple sclerosis (principal)
CPT/HCPCS: 96365; J2930; J7050

== ENCOUNTER → 2024-08-24 10:47 | Outpatient (BNVA) | payer MEDICARE, MEDICAID, SELFPAY | PROVIDERS: PCP Family Medicine; Referring Provider Family Medicine; Visit Provider Specialist | DX: G35 Multiple sclerosis (principal); M54.9 Dorsalgia, unspecified; N31.9 Neuromuscular dysfunction of bladder, unspecified; F17.200 Nicotine dependence, unspecified, uncomplicated | CPT/HCPCS: 99215 ==

== ENCOUNTER 2024-08-31 12:50 | Outpatient (CLI) | payer MEDICARE, MEDICAID, SELFPAY ==
--- NOTE | 2024-08-31 13:00 | MR_ITS ---
WS: [id number] MRI CERVICAL SPINE NONCONTRAST TECHNIQUE: Sagittal T1, T2 and STIR imaging. Axial T2, gradient, and fiesta imaging. CLINICAL INFORMATION: G35 - Multiple sclerosis COMPARISON: Outside MRI 2021 FINDINGS: Chronic appearing demyelinating plaques in the cervical cord similar to the prior examination. This extends into the upper thoracic cord. At least 1 of these lesions at C4 previously enhanced. Multiple lesions visualized in the brainstem and ben. See MRI head for further detail. Gadolinium not administered today. C2-C3: Mild facet arthropathy. C3-C4: Mild disc osteophyte complex with endplate ridging. Moderate LEFT bony foraminal narrowing. Mild facet arthropathy. C4-C5: Disc osteophyte complex with endplate ridging. Moderate facet arthropathy with uncovertebral joint hypertrophy. Mild central canal stenosis. Moderate RIGHT and no significant LEFT foraminal narrowing. C5-C6: Disc osteophyte complex with endplate ridging. Moderate to advanced facet arthropathy. Mild central canal stenosis. Mild bilateral bony foraminal narrowing. C6-C7: Disc osteophyte complex with endplate ridging. Small central protrusion. Spinal canal is patent. Foramen are patent. C7-T1: Normal. MR/MR cervical spin wo con* [id number] IMPRESSION: 1. Numerous chronic appearing demounting plaques in the cervical cord similar to the prior study. 2. No significant disease progression considering differences in technique. 3. No significant cord atrophy. Gadolinium not administered 4. Otherwise moderate spondylitic changes described above.
--- NOTE | 2024-08-31 13:45 | MR_ITS ---
WS: [id number] MRI HEAD WITH CONTRAST TECHNIQUE: Sagittal T1, T2 axial, T2 axial FLAIR, axial susceptibility weighted imaging, axial diffusion weighted images, and coronal T2 images were obtained. Pre and post-T1 axial and post T1 coronal images. ADC and FSPGR images. CLINICAL INFORMATION: G35 - Multiple sclerosis COMPARISON: 08/05/2021 FINDINGS: No evidence of restricted diffusion to suggest acute ischemia. Ventricular system and basal cisterns are patent. Advanced supra and infratentorial white matter changes compatible with demyelinating disease. The number and distribution of lesions appears stable compared to 2021 considering differences in technique. No evidence of significant disease progression. Mild parenchymal volume loss. Additional demyelinating lesions involving the midbrain, ben and brainstem similar to previous. Normal vascular flow voids at the skull base. No extra-axial fluid collections. Paranasal sinuses are well aerated. Mild mucosal thickening in the sphenoid sinus. Mastoid air cells are well aerated. No hemosiderin. Moderate to advanced T1 hypointense lesion load. Mild chronic thinning and thinning of the corpus callosum. Previously described enhancing lesions no longer enhance today. MR/MR head wo/w con [id number] IMPRESSION: 1. No evidence of restricted diffusion to suggest acute ischemia. 2. Advanced supra and infratentorial patchy white matter changes compatible wi th demyelinating disease also involving the midbrain, ben, and brainstem. Lesi on burden appears stable compared to previous. No significant disease progressi on. 3. No enhancing lesions to indicate active disease. 4. Moderate to advanced T1 hypointense lesion load. 5. Mild chronic thinning of the corpus callosum.
[2024-08-31] MEDS: gadobenate dimeglumine 20 mL vial 13 ML IV (14:14)
== END 2024-08-31 12:51 | disposition home or self-care (01) ==
LOC: RAD 12:51
PROVIDERS: PCP Family Medicine; Visit Provider Specialist
DX: G35 Multiple sclerosis (principal)
CPT/HCPCS: 70553; 72141

== ENCOUNTER 2024-10-05 10:55 | Oncology outpatient (recurring) (ONCR) | payer MEDICARE, MEDICAID, SELFPAY ==
[2024-10-05 11:39] VITALS: BP 114/82; PULSE 57; TEMP 36.5; O2SAT 97
[2024-10-05] MEDS: diphenhydrAMINE 50 mg/mL SDV 1mL 25 MG IVP (12:21)
[2024-10-05] MEDS: methylPREDNISolone sod succ 125 mg/2 mL INJ IVP (12:26)
[2024-10-05 13:33] VITALS: BP 119/74; PULSE 70; RESP 16; TEMP 36.4; O2SAT 96
[2024-10-05 13:49] VITALS: BP 117/73; PULSE 65; RESP 16; TEMP 36.4; O2SAT 97
[2024-10-05 14:08] VITALS: BP 116/79; PULSE 73; RESP 16; TEMP 36.6; O2SAT 97
[2024-10-05 15:46] VITALS: BP 95/62; PULSE 71; RESP 16; TEMP 36.4; O2SAT 94
== END 2024-10-08 23:59 | disposition home or self-care (01) ==
PROVIDERS: PCP Family Medicine; Visit Provider Specialist
DX: G35 Multiple sclerosis (principal); Z79.899 Other long term (current) drug therapy
CPT/HCPCS: 96375; 96413; 96415; A4222; J1200; J2350; J2919; J7040; J7050; J9999